=== PATIENT | female | born 1940 | race Caucasian/White ===

== ENCOUNTER → 2018-03-02 | Outpatient (CLI) | payer MEDICARE ==
--- NOTE | 2018-03-02 15:52 | BD ---
EXAMINATION TYPE: Axial Bone Density DATE OF EXAM: 03/02/2018 COMPARISON: NONE CLINICAL HISTORY: Osteoporosis screening. Postmenopausal female. Height: 62 IN Weight: 131 LBS FRAX RISK QUESTIONS: Current Tobacco Use: YES RISK FACTORS HISTORY OF: Active: MODERATE Postmenopausal woman: AGE 48 POOR HISTORIAN. MEDICATIONS: Additional Medications: CALCIUM, VIT D, EXAM MEASUREMENTS: Bone mineral densitometry was performed using the [employer] System. Bone mineral density as measured about the Lumbar spine is: ----- L1-L4(G/cm2): 0.802 T Score Values are as follows: ----- L2: -5.0 ----- L3: -3.3 ----- L4: -0.9 ----- L1-L4: -3.2 Bone mineral density BASELINE Bone mineral density about the R hip (g/cm2): 0.654 Bone mineral density about the L hip (g/cm2): 0.616 T Score values are as follows: -----R Neck: -2.8 -----L Neck: -3.0 -----R Total: -3.4 -----L Total: -3.8 Bone mineral density BASELINE IMPRESSION: Osteoporosis (T Score less than -2.5). There is increased fracture risk and therapy is usually indicated based on age. Re-Screen 1-2 years. NOTE: T-SCORE=SD OF THE YOUNG ADULT MEAN.
--- NOTE | 2018-03-03 13:45 | MM ---
Reason for exam: screening (asymptomatic). History: Patient had first child at age 38. Physical Findings: A clinical breast exam by your physician is recommended on an annual basis and results should be correlated with mammographic findings. MG Screening Mammo w CAD Bilateral CC and MLO view(s) were taken. There are scattered fibroglandular densities. Focal asymmetry 3 o'clock left breast. Central nodularity left breast anterior to middle depth. Additional grouped calcifications lower outer quadrant centrally left breast. ASSESSMENT: Incomplete: need additional imaging evaluation, BI-RAD 0 RECOMMENDATION: Special view mammogram of the left breast. If lesion persists on supplemental views, image directed ultrasound is recommended. [facility] will attempt to contact patient to return for supplemental views and ultrasound if indicated.
== END | disposition home or self-care (01) ==
LOC: RADMAMWWP 13:49
PROVIDERS: ATTEND Family Medicine
DX: Z12.31 Encounter for screening mammogram for malignant neoplasm of breast (principal); M81.0 Age-related osteoporosis without current pathological fracture; Z78.0 Asymptomatic menopausal state
CPT/HCPCS: 77067; 77080

== ENCOUNTER → 2018-03-17 | Outpatient (CLI) | payer MEDICARE ==
--- NOTE | 2018-03-18 10:43 | MM ---
Reason for exam: additional evaluation requested from abnormal screening. Last mammogram was performed less than 1 month ago. History: Patient is postmenopausal and had first child at age 38. Benign excisional biopsy. Physical Findings: Nurse did not find any significant physical abnormalities on exam. MG 3D Work Up W/Cad LT Spot compression CC, MLO, CC with magnification, ML with magnification, and ML view(s) were taken of the left breast. Prior study comparison: March 02, 2018, bilateral MG screening mammo w CAD. There are scattered fibroglandular densities. 5 'clock middle depth calcifications are heterogeneous, biopsy recommended. 4mm circumscribed mass centrally anterior to middle depth, ultrasound recommended, also at 5 o'clock. The lateral asymmetry disperses on spot 3D These results were verbally communicated with the patient and result sheet given to the patient on 03/17/18. ASSESSMENT: Incomplete: need additional imaging evaluation, BI-RAD 0 RECOMMENDATION: Ultrasound of the left breast. 5 o'clock
--- NOTE | 2018-03-18 10:47 | USB ---
Reason for exam: additional evaluation requested from abnormal screening. History: Patient is postmenopausal and had first child at age 38. Benign excisional biopsy. US Breast Workup Limited LT Left limited breast ultrasound including focal area of concern, retroareolar and axilla demonstrates a 0.2 x 0.2 x 0.2cm lesion too small to characterize at 4 o'clock, likely corresponds to the mammographic finding. Can be reassessed at follow up. These results were verbally communicated with the patient and result sheet given to the patient on 03/17/18. ASSESSMENT: Suspicious, BI-RAD 4 RECOMMENDATION: Stereotactic core biopsy of the left breast. (calcifications) Called with mammographic findings and has scheduled an appointment for the patient for 04/05/18 at 10:[address] Chavez. PRELIMINARY REPORT CALLED AND FAXED TO DR. CHAVEZ ON 03/18/18.
== END | disposition home or self-care (01) ==
LOC: RADMAMWWP 13:13
PROVIDERS: ATTEND Family Medicine
DX: R92.8 Other abnormal and inconclusive findings on diagnostic imaging of breast (principal)
CPT/HCPCS: 77065; 76642; G0279; 77061

== ENCOUNTER → 2018-03-26 | Day surgery (SDC) | payer MEDICARE ==
[2018-03-26 07:24] VITALS: RESP 16; TEMP 97.7; BMI 23.3
[2018-03-26 09:17] VITALS: BP 103/53; PULSE 69
--- NOTE | 2018-03-26 13:18 | MM ---
EXAMINATION TYPE: MG stereo VAD BX LT DATE OF EXAM: 03/26/2018 COMPARISON: 03/17/2018 CLINICAL HISTORY: 5 mm group of counts within the lower outer quadrant TECHNIQUE: Stereotactic guided core biopsy of left breast. FINDINGS: The procedure of stereotactic guided core biopsy was explained to the patient. Benefits, alternatives, and risks were discussed. An informed consent was then obtained. Preprocedural timeout was performed. The shortness pathway for biopsy was chosen. Shortness pathway was CC from below approach. Images were obtained localizing the calcifications the patient was anesthetized with lidocaine without epinephrine at the skin surface and deeper subcutaneous tissues. The needle was advanced to the appropriate depth and prefire images were obtained. After firing 10 cc of lidocaine with epinephrine was utilized to anesthetize the site of biopsy. Subsequently a vacuum assisted biopsy gun was used to obtain 9 core samples. Postprocedural biopsy marker was placed. The patient tolerated the procedure well without any immediate complication. The patient was kept in the radiology department for short stay after the procedure and then discharged home in stable condition. Targeted calcifications are identified in specimen mammogram. Post biopsy mammogram shows the biopsy marker to appear in satisfactory position relative to the targeted area of concern on the preprocedure images. IMPRESSION: SUCCESSFUL, UNCOMPLICATED STEREOTACTIC GUIDED CORE BIOPSY OF A 5 MM GROUP OF CALCIFICATIONS WITHIN THE LOWER OUTER QUADRANT OF THE LEFT BREAST , FULL PATHOLOGY RESULTS TO FOLLOW. Pathology Results: Benign LEFT BREAST LESION, NEEDLE CORE BIOPSIES: Breast parenchyma with fibrocystic spectrum changes including focal fibroadenomatoid lesion showing coarse intraductal mineralizations. Paraductal inflammation. Recommendation Follow up mammogram of the left breast in 6 months. JUANITO
== END | disposition home or self-care (01) ==
LOC: RADMAMWWP 06:53
PROVIDERS: ATTEND Family Medicine
DX: D24.2 Benign neoplasm of left breast (principal); R92.0 Mammographic microcalcification found on diagnostic imaging of breast; N61.0 Mastitis without abscess; N60.12 Diffuse cystic mastopathy of left breast
CPT/HCPCS: 88305; 19081; A4648; J2001

== ENCOUNTER → 2018-10-20 | Outpatient (CLI) | payer MEDICARE ==
--- NOTE | 2018-10-20 13:57 | MM ---
Reason for exam: follow-up at short interval from prior study. Last mammogram was performed 7 months ago. History: Patient is postmenopausal and had first child at age 38. Benign MG stereo VAD BX LT of the left breast, March 26, 2018. Benign excisional biopsy. Physical Findings: Nurse did not find any significant physical abnormalities on exam. MG 3D Diag Mammo W/Cad LT CC and MLO view(s) were taken of the left breast. Prior study comparison: March 17, 2018, left breast MG 3d work up w/cad LT. March 02, 2018, bilateral MG screening mammo w CAD. There are scattered fibroglandular densities. There is a stable lower outer quadrant left mass as seen on priors. No suspicious abnormality. Lower outer quadrant middle depth biopsy marker and post biopsy change. These results were verbally communicated with the patient and result sheet given to the patient on 10/20/18. ASSESSMENT: Benign, BI-RAD 2 RECOMMENDATION: Return to routine screening mammogram schedule for both breasts.
== END | disposition home or self-care (01) ==
LOC: RADMAMWWP 12:40
PROVIDERS: ATTEND Family Medicine
DX: N64.4 Mastodynia (principal)
CPT/HCPCS: 77065; G0279; 77061

== ENCOUNTER → 2021-06-05 | Outpatient (CLI) | payer MEDICARE ==
--- NOTE | 2021-06-05 11:44 | XR ---
EXAMINATION TYPE: XR chest 2V DATE OF EXAM: 06/05/2021 COMPARISON: None INDICATION: custodial placement, rule out TB TECHNIQUE: Frontal and lateral views of the chest are obtained. FINDINGS: The heart size is normal. The pulmonary vasculature is normal. The lungs are clear. No suspicious infiltrates or densities evident. Scoliosis is present. IMPRESSION: 1. No acute pulmonary process. 2. Scoliosis
== END | disposition home or self-care (01) ==
LOC: RADXRMAIN 10:34
PROVIDERS: ATTEND Family Medicine
DX: Z02.2 Encounter for examination for admission to residential institution (principal); M41.9 Scoliosis, unspecified
CPT/HCPCS: 71046

== ENCOUNTER → 2022-08-28 | Outpatient (CLI) | payer MEDICARE ==
--- NOTE | 2022-08-28 12:01 | CT ---
EXAMINATION TYPE: CT abdomen wo con DATE OF EXAM: 08/28/2022 COMPARISON: None HISTORY: Elevated liver enzymes CT DLP: 312 mGycm Automated exposure control for dose reduction was used. TECHNIQUE: Helical acquisition of images was performed from the lung bases through the top of iliac crest to include entire abdomen. CONTRAST: Performed without IV contrast. FINDINGS: LUNG BASES: Linear subsegmental changes most typical of atelectasis. Dense coronary artery calcificat ion noted. Heart size normal. Atherosclerotic sclerotic change of the aorta and its branch vessels. E mphysematous changes seen and suspect mild chronic interstitial lung disease. LIVER/GB: No significant abnormality is appreciated. PANCREAS: No significant abnormality is seen. SPLEEN: No significant abnormality is seen. ADRENALS: No significant abnormality is seen. KIDNEYS: No significant abnormality is seen. BOWEL: No significant abnormality is seen. LYMPH NODES: No significant abnormality is appreciated. OSSEOUS STRUCTURES: Scoliosis with multilevel degenerative disc disease. OTHER: Extensive atherosclerotic changes of aorta and its branch vessels. Suspect severe aortic steno sis distally and bilateral severe iliac artery stenosis IMPRESSION: 1. Liver is homogeneous without evidence of focal abnormality. 2. ectasia of the aorta with dense atherosclerotic changes of aorta and its branch vessels. Suspect s evere abdominal aortic stenosis distally, as well as, bilateral proximal iliac artery stenosis. 3. Dense coronary artery atherosclerotic disease.
== END | disposition home or self-care (01) ==
LOC: RADCTMAIN 11:19
PROVIDERS: ATTEND Family Medicine
DX: I70.0 Atherosclerosis of aorta (principal); I25.10 Atherosclerotic heart disease of native coronary artery without angina pectoris; R74.01 Elevation of levels of liver transaminase levels
CPT/HCPCS: 74150

== ENCOUNTER 2022-10-21 15:30 | Observation (INO) | payer MEDICARE ==
--- NOTE | 2022-10-21 16:23 | ED ---
General Adult HPI - General Source: patient, RN notes reviewed, Caregiver Mode of arrival: wheelchair Limitations: no limitations <MadisonJuanpabloHellen - Last Filed: 10/21/22 16:24> - General Source: patient, RN notes reviewed, Caregiver Mode of arrival: wheelchair Limitations: no limitations - History of Present Illness Onset/Timin -: week(s) <Cece Garcia - Last Filed: 10/22/22 00:13> - General Chief complaint: Weakness Stated complaint: Heart Time Seen by Provider: 10/21/22 16:18 - History of Present Illness Initial comments: Patient is an 82-year-old female who presents to the emergency department for evaluation of weakness. Patient has had generalized weakness and lethargy for the past 2 weeks. She denies any recent falls or head injury. She denies fever, chills, chest pain, shortness of breath, abdominal pain, nausea, vomiting, burning with urination, cold-like symptoms. Patient was at a follow- up appointment with Dr. Rosas's office today she states EKG showed arrhythmia. Patient denies history. (Hellen Wallace) When I went to evaluate the patient, she reiterated similar symptoms as listed above. However, the patient did fall 4 days ago. When she fell, she did injure her face and left hand. She has been somewhat dizzy since, however her caregiver is not sure if it has been worse than it was prior. Believes that the fall was related to her slipping out of her bed. She is usually able to ambulate with a walker, but at this point, the staff at [facility] is barely able to get her out of bed and get her to move around. They were also concerned about the echocardiogram she had done here last month, and that they believe it was inconclusive and the study was very difficult, making them concerned about the accuracy. They're also worried about the iliac stenosis on the computed tomography scan, and was worried about that contributing to the weakness as well. (Cece Garcia) - Related Data Home Medications Medication Instructions Recorded Confirmed Donepezil [Aricept] 10 mg PO HS 03/23/18 10/21/22 Escitalopram [Lexapro] 20 mg PO DAILY 03/23/18 10/21/22 Memantine [Namenda] 10 mg PO BID 03/23/18 10/21/22 lisinopriL [Zestril] 10 mg PO DAILY 03/23/18 10/21/22 Arformoterol Tartrate 15 mcg INHALATION DIRECTED 10/21/22 10/21/22 Ascorbic Acid [Vitamin C] 1,000 mg PO DAILY 10/21/22 10/21/22 Cholecalciferol [Vitamin D3 (25 25 mcg PO DAILY 10/21/22 10/21/22 Mcg = 1000 Iu)] Fluticasone/Vilanterol 1 puff INHALATION RT-DAILY 10/21/22 10/21/22 [Fluticasone-Vilanterol 200-25] Megestrol [Megace] 40 mg PO DAILY 10/21/22 10/21/22 Vitamin B Complex 1 cap PO DAILY 10/21/22 10/21/22 Yupelri 175 Mcg 175 mcg INHALATION DIRECTED 10/21/22 10/21/22 Zinc Gluconate [Zinc] 50 mg PO DAILY 10/21/22 10/21/22 Allergies Allergy/AdvReac Type Severity Reaction Status Date / Time No Known Allergies Allergy Verified 10/21/22 20:19 Review of Systems ROS Other: All systems not noted in ROS Statement are negative. <Hellen Wallace - Last Filed: 10/21/22 16:24> ROS Other: All systems not noted in ROS Statement are negative. <Cece Garcia - Last Filed: 10/22/22 00:13> ROS Statement: Those systems with pertinent positive or pertinent negative responses have been documented in the HPI. Past Medical History Past Medical History: COPD, Dementia, Hypertension Additional Past Medical History / Comment(s): back and hip pain History of Any Multi-Drug Resistant Organisms: None Reported Past Surgical History: Breast Surgery Additional Past Surgical History / Comment(s): pt states hx excisional biopsy Past Anesthesia/Blood Transfusion Reactions: No Reported Reaction Past Psychological History: Depression Smoking Status: Current some day smoker Past Alcohol Use History: Rare Past Drug Use History: None Reported <Hellen Wallace - Last Filed: 10/21/22 16:24> General Exam Limitations: no limitations <Hellen Wallace - Last Filed: 10/21/22 16:24> Limitations: no limitations General appearance: alert, in no apparent distress Head exam: Present: other (Ecchymosis to the bridge of the nose and to the right periorbital region. Nontender to palpation.) Eye exam: Present: normal appearance, PERRL, EOMI. Absent: scleral icterus, conjunctival injection, periorbital swelling Respiratory exam: Present: normal lung sounds bilaterally. Absent: respiratory distress, wheezes, rales, rhonchi, stridor Cardiovascular Exam: Present: regular rate, normal rhythm, normal heart sounds. Absent: systolic murmur, diastolic murmur, rubs, gallop, clicks Extremities exam: Present: other (Ecchymosis to the dorsal aspect of the left hand. No overlying tenderness. Full active and passive range of motion. 2+ radial pulses.) Neurological exam: Present: alert, oriented X3, CN II-XII intact Psychiatric exam: Present: normal affect, normal mood Skin exam: Present: warm, dry, intact, normal color. Absent: rash <Cece Garcia - Last Filed: 10/22/22 00:13> Course Vital Signs 10/21/22 10/21/22 10/21/22 15:48 20:51 22:54 Temperature 98.2 F Pulse Rate 97 103 H 74 Respiratory 18 18 18 Rate Blood Pressure 99/66 125/69 112/76 O2 Sat by Pulse 96 96 95 Oximetry 10/21/22 23:33 Temperature Pulse Rate 78 Respiratory 18 Rate Blood Pressure 128/67 O2 Sat by Pulse 93 L Oximetry Medical Decision Making - Lab Data Result diagrams: 10/21/22 16:42 10/21/22 16:42 - Radiology Data Radiology results: report reviewed, image reviewed <Cece Garcia - Last Filed: 10/22/22 00:13> - Medical Decision Making This is an 82-year-old female who presents to the emergency department for generalized weakness. Was pt. sent in by a medical professional or institution? @ -No Did you speak to anyone other than the patient for history? @ -Caregivers Did you review nursing and triage notes? @ -Yes, and I agree, it is accurate with regards to the patient's symptoms. Were old charts reviewed? @ -No Differential Diagnosis? @ -Differential Weakness: Hypoglycemia, shock, sepsis, hyponatremia, anemia, infection, PR, ETOH, adverse medicine reaction, overdose, stroke, this is not meant to be an all-inclusive list. EKG interpreted by me (3pts min.)? @ -Sinus rhythm. Ventricular rate 90 beats per minute, TX interval 166 ms, QRS duration 80 ms, QTC 377 ms. X-rays interpreted by me (1pt min.)? @ -Chest x-ray obtained, my interpretation identifies no localized consolidations or infiltrates. X-ray of the left hand obtained. My interpretation identifies no fractures or dislocations. CT interpreted by me (1pt min.)? @ -Computed tomography scan of the brain and c-spine obtained. My interpretation identifies no evidence of an acute intracranial hemorrhage, skull fracture, or cervical spine fracture. Computed tomography scan of the facial bones obtained as well. My interpretation identifies no evidence of any facial fractures. What testing was considered but not performed? (CT, X-rays, U/S, labs)? Why? @ -None What meds were considered but not given? Why? @ -None Did you discuss the management of the patient with other professionals? @ -Yes, Dr. Rosas, who accepts the patient for admission. Did you reconcile home meds? @ -Yes Was smoking cessation discussed for >3mins.? @ -No Was critical care preformed (if so, how long)? @ -No Were there social determinants of health that impacted care today? How? (Homelessness, low income, unemployed, alcoholism, drug addiction, transportation, low edu. Level, literacy, decrease access to med. care, snf, rehab)? @ -No Was there de-escalation of care discussed even if they declined? (Discuss DNR or withdrawal of care, Hospice)? @ -No What co-morbidities impacted this encounter? (DM, HTN, Smoking, COPD, CAD, Cancer, CVA, Hep., AIDS, mental health diagnosis, sleep apnea, morbid obesity)? @ -COPD, dementia, HTN Was patient admitted / discharged? @ -Admitted. Lab work obtained revealing minor elevation in LFTs and otherwise found to be nonactionable. Patient negative for Covid, influenza, and RSV. Given that the patient did have a recent fall, computed tomography scan of the brain, C-spine, and facial bones obtained, revealing no acute findings. Chest x-ray and x-ray of the left hand obtained as well, also revealing no acute irregularities. Urinalysis positive for a UTI. Patient given 1g of ceftriaxone with blood and urine cultures obtained prior. LFTs are elevated for unclear reasons. Most recent value for comparison is from June 2021, when they were within normal limits. Patient admitted to medicine for the UTI and increased weakness. Undiagnosed new problem with uncertain prognosis? @ -None Drug Therapy requiring intensive monitoring for toxicity (Heparin, Nitro, Insulin, Cardizem)? @ -None Were any procedures done? @ -None Diagnosis/symptom? @ -UTI, weakness Acute, or Chronic, or Acute on Chronic? @ -Acute Uncomplicated (without systemic symptoms) or Complicated (systemic symptoms)? @ -Complicated Side effects of treatment? @ -None Exacerbation, Progression, or Severe Exacerbation] @ -Not applicable Poses a threat to life or bodily function? @ -Yes This case was discussed in detail with the attending ED physician, Dr. Hannah. Presentation, findings, and treatment plan discussed in detail as well. (Cece Garcia) - Lab Data Lab Results 10/21/22 10/21/22 10/21/22 Range/Units 16:42 16:42 16:42 WBC 10.0 (3.8-10.6) k/uL RBC 3.98 (3.80-5.40) m/uL Hgb 13.7 (11.4-16.0) gm/dL Hct 41.3 (34.0-46.0) % MCV 103.7 H (80.0-100.0) fL MCH 34.4 (25.0-35.0) pg MCHC 33.2 (31.0-37.0) g/dL RDW 12.5 (11.5-15.5) % Plt Count 194 (150-450) k/uL MPV 7.9 Neutrophils % 72 % Lymphocytes % 18 % Monocytes % 6 % Eosinophils % 1 % Basophils % 1 % Neutrophils # 7.1 (1.3-7.7) k/uL Lymphocytes # 1.8 (1.0-4.8) k/uL Monocytes # 0.6 (0-1.0) k/uL Eosinophils # 0.1 (0-0.7) k/uL Basophils # 0.1 (0-0.2) k/uL Macrocytosis Slight PT 10.7 (9.0-12.0) sec INR 1.0 (<1.2) APTT 21.3 L (22.0-30.0) sec Sodium 139 (137-145) mmol/L Potassium 4.4 (3.5-5.1) mmol/L Chloride 106 (98-107) mmol/L Carbon Dioxide 25 (22-30) mmol/L Anion Gap 8 mmol/L BUN 20 H (7-17) mg/dL Creatinine 0.66 (0.52-1.04) mg/dL Est GFR (CKD-EPI)AfAm >90 (>60 ml/min/1.73 sqM) Est GFR (CKD-EPI)NonAf 81 (>60 ml/min/1.73 sqM) Glucose 88 (74-99) mg/dL Plasma Lactic Acid Alejandro (0.7-2.0) mmol/L Calcium 9.5 (8.4-10.2) mg/dL Magnesium 2.1 (1.6-2.3) mg/dL Total Bilirubin 0.6 (0.2-1.3) mg/dL AST 96 H (14-36) U/L ALT 147 H (4-34) U/L Alkaline Phosphatase 118 (38-126) U/L Troponin I (0.000-0.034) ng/mL NT-Pro-B Natriuret Pep pg/mL Total Protein 6.9 (6.3-8.2) g/dL Albumin 3.9 (3.5-5.0) g/dL TSH (0.465-4.680) mIU/L Urine Color Urine Appearance (Clear) Urine pH (5.0-8.0) Ur Specific Roebling (1.001-1.035) Urine Protein (Negative) Urine Glucose (UA) (Negative) Urine Ketones (Negative) Urine Blood (Negative) Urine Nitrite (Negative) Urine Bilirubin (Negative) Urine Urobilinogen (<2.0) mg/dL Ur Leukocyte Esterase (Negative) Urine RBC (0-5) /hpf Urine WBC (0-5) /hpf Ur Squamous Epith Cells (0-4) /hpf Urine Bacteria (None) /hpf Urine Mucus (None) /hpf Influenza Type A (PCR) (Not Detectd) Influenza Type B (PCR) (Not Detectd) RSV (PCR) (Not Detectd) SARS-CoV-2 (PCR) (Not Detectd) 10/21/22 10/21/22 10/21/22 Range/Units 16:42 16:42 16:42 WBC (3.8-10.6) k/uL RBC (3.80-5.40) m/uL Hgb (11.4-16.0) gm/dL Hct (34.0-46.0) % MCV (80.0-100.0) fL MCH (25.0-35.0) pg MCHC (31.0-37.0) g/dL RDW (11.5-15.5) % Plt Count (150-450) k/uL MPV Neutrophils % % Lymphocytes % % Monocytes % % Eosinophils % % Basophils % % Neutrophils # (1.3-7.7) k/uL Lymphocytes # (1.0-4.8) k/uL Monocytes # (0-1.0) k/uL Eosinophils # (0-0.7) k/uL Basophils # (0-0.2) k/uL Macrocytosis PT (9.0-12.0) sec INR (<1.2) APTT (22.0-30.0) sec Sodium (137-145) mmol/L Potassium (3.5-5.1) mmol/L Chloride (98-107) mmol/L Carbon Dioxide (22-30) mmol/L Anion Gap mmol/L BUN (7-17) mg/dL Creatinine (0.52-1.04) mg/dL Est GFR (CKD-EPI)AfAm (>60 ml/min/1.73 sqM) Est GFR (CKD-EPI)NonAf (>60 ml/min/1.73 sqM) Glucose (74-99) mg/dL Plasma Lactic Acid Alejandro 2.0 (0.7-2.0) mmol/L Calcium (8.4-10.2) mg/dL Magnesium (1.6-2.3) mg/dL Total Bilirubin (0.2-1.3) mg/dL AST (14-36) U/L ALT (4-34) U/L Alkaline Phosphatase (38-126) U/L Troponin I <0.012 (0.000-0.034) ng/mL NT-Pro-B Natriuret Pep 182 pg/mL Total Protein (6.3-8.2) g/dL Albumin (3.5-5.0) g/dL TSH (0.465-4.680) mIU/L Urine Color Urine Appearance (Clear) Urine pH (5.0-8.0) Ur Specific Roebling (1.001-1.035) Urine Protein (Negative) Urine Glucose (UA) (Negative) Urine Ketones (Negative) Urine Blood (Negative) Urine Nitrite (Negative) Urine Bilirubin (Negative) Urine Urobilinogen (<2.0) mg/dL Ur Leukocyte Esterase (Negative) Urine RBC (0-5) /hpf Urine WBC (0-5) /hpf Ur Squamous Epith Cells (0-4) /hpf Urine Bacteria (None) /hpf Urine Mucus (None) /hpf Influenza Type A (PCR) (Not Detectd) Influenza Type B (PCR) (Not Detectd) RSV (PCR) (Not Detectd) SARS-CoV-2 (PCR) (Not Detectd) 10/21/22 10/21/22 10/21/22 Range/Units 18:42 19:15 21:45 WBC (3.8-10.6) k/uL RBC (3.80-5.40) m/uL Hgb (11.4-16.0) gm/dL Hct (34.0-46.0) % MCV (80.0-100.0) fL MCH (25.0-35.0) pg MCHC (31.0-37.0) g/dL RDW (11.5-15.5) % Plt Count (150-450) k/uL MPV Neutrophils % % Lymphocytes % % Monocytes % % Eosinophils % % Basophils % % Neutrophils # (1.3-7.7) k/uL Lymphocytes # (1.0-4.8) k/uL Monocytes # (0-1.0) k/uL Eosinophils # (0-0.7) k/uL Basophils # (0-0.2) k/uL Macrocytosis PT (9.0-12.0) sec INR (<1.2) APTT (22.0-30.0) sec Sodium (137-145) mmol/L Potassium (3.5-5.1) mmol/L Chloride (98-107) mmol/L Carbon Dioxide (22-30) mmol/L Anion Gap mmol/L BUN (7-17) mg/dL Creatinine (0.52-1.04) mg/dL Est GFR (CKD-EPI)AfAm (>60 ml/min/1.73 sqM) Est GFR (CKD-EPI)NonAf (>60 ml/min/1.73 sqM) Glucose (74-99) mg/dL Plasma Lactic Acid Alejandro (0.7-2.0) mmol/L Calcium (8.4-10.2) mg/dL Magnesium (1.6-2.3) mg/dL Total Bilirubin (0.2-1.3) mg/dL AST (14-36) U/L ALT (4-34) U/L Alkaline Phosphatase (38-126) U/L Troponin I (0.000-0.034) ng/mL NT-Pro-B Natriuret Pep pg/mL Total Protein (6.3-8.2) g/dL Albumin (3.5-5.0) g/dL TSH 1.760 (0.465-4.680) mIU/L Urine Color Yellow Urine Appearance Cloudy H (Clear) Urine pH 5.5 (5.0-8.0) Ur Specific Roebling 1.020 (1.001-1.035) Urine Protein Trace H (Negative) Urine Glucose (UA) Negative (Negative) Urine Ketones Negative (Negative) Urine Blood Negative (Negative) Urine Nitrite Positive H (Negative) Urine Bilirubin Negative (Negative) Urine Urobilinogen 2.0 (<2.0) mg/dL Ur Leukocyte Esterase Moderate H (Negative) Urine RBC 2 (0-5) /hpf Urine WBC 27 H (0-5) /hpf Ur Squamous Epith Cells <1 (0-4) /hpf Urine Bacteria Many H (None) /hpf Urine Mucus Occasional H (None) /hpf Influenza Type A (PCR) Not Detected (Not Detectd) Influenza Type B (PCR) Not Detected (Not Detectd) RSV (PCR) Not Detected (Not Detectd) SARS-CoV-2 (PCR) Not Detected (Not Detectd) Disposition <Hellen Wallace - Last Filed: 10/21/22 16:24> <Cece Garcia - Last Filed: 10/22/22 00:13> Clinical Impression: UTI (urinary tract infection), Weakness Disposition: ADMITTED IP TO THIS HOSP
--- NOTE | 2022-10-21 16:51 | XR ---
EXAMINATION TYPE: XR chest 2V DATE OF EXAM: 10/21/2022 COMPARISON: 06/05/2021 HISTORY: [facility] placement TECHNIQUE: 2 view FINDINGS: There is moderate upper thoracic dextroscoliotic deformity. Lungs are clear of consolidatio n. There is some flattening of the diaphragm. There are no hilar masses. Heart size is normal. IMPRESSION: COPD. No acute lung disease. Scoliotic deformity. No significant change.
[2022-10-21 17:17] LABS: Basophils # (A) 0.1 k/uL (0-0.2); Basophils % (A) 1 %; Eosinophils # (A) 0.1 k/uL (0-0.7); Eosinophils % (A) 1 %; HCT 41.3 % (34.0-46.0); HGB 13.7 gm/dL (11.4-16.0); Lymphocytes # (A) 1.8 k/uL (1.0-4.8); Lymphocytes % (A) 18 %; MCH 34.4 pg (25.0-35.0); MCHC 33.2 g/dL (31.0-37.0); MCV 103.7 fL (80.0-100.0); Macrocytosis Slight; Mean Platelet Volume 7.9; Monocytes # (A) 0.6 k/uL (0-1.0); Monocytes % (A) 6 %; Neutrophils # (A) 7.1 k/uL (1.3-7.7); Neutrophils % (A) 72 %; Platelet Count 194 k/uL (150-450); RBC 3.98 m/uL (3.80-5.40); RDW 12.5 % (11.5-15.5)
[2022-10-21 17:27] LABS: ALT 147 U/L (4-34); AST 96 U/L (14-36); African American GFR (CKD) >90 (>60 ml/min/1.73 sqM); Albumin 3.9 g/dL (3.5-5.0); Alkaline Phosphatase 118 U/L (38-126); Anion Gap 8 mmol/L; Blood Urea Nitrogen 20 mg/dL (7-17); Calcium 9.5 mg/dL (8.4-10.2); Carbon Dioxide 25 mmol/L (22-30); Chloride 106 mmol/L (98-107); Glucose 88 mg/dL (74-99); Magnesium 2.1 mg/dL (1.6-2.3); Non-African American GFR(CKD) 81 (>60 ml/min/1.73 sqM); Potassium 4.4 mmol/L (3.5-5.1); Sodium 139 mmol/L (137-145); Total Bilirubin 0.6 mg/dL (0.2-1.3); Total Protein 6.9 g/dL (6.3-8.2)
[2022-10-21 17:33] LABS: Prothrombin Time 10.7 sec (9.0-12.0)
[2022-10-21 17:36] LABS: Partial Thromboplastin Time 21.3 sec (22.0-30.0)
--- NOTE | 2022-10-21 19:55 | XR ---
EXAMINATION TYPE: XR hand complete LT DATE OF EXAM: 10/21/2022 COMPARISON: NONE HISTORY: Pain TECHNIQUE: 3 views FINDINGS: Metacarpals are intact. I see no fracture nor dislocation. There is some narrowing of the D IP joint spaces. There are no erosions. No subluxation. There is narrowing and spurring at the scaphoid trapezium joint. IMPRESSION: There is nonspecific joint space narrowing. No fracture seen.
--- NOTE | 2022-10-21 20:01 | CT ---
EXAMINATION TYPE: CT facial bones wo con DATE OF EXAM: 10/21/2022 COMPARISON: None HISTORY: fall, facial swelling CT DLP: 994.1 mGycm Automated exposure control for dose reduction was used. Images obtained from the bottom of the mandible to the top of the frontal sinuses. The mandibular ring is intact. The zygomatic arches appear normal. Maxilla is intact. Nasal bone is i ntact. There is fairly normal aeration of the paranasal sinuses. The orbital margins are intact. No evidence of retro-orbital mass. Sella turcica is normal. No eviden ce of orbital blowout fracture. There is fairly normal aeration of the mastoid air cells. IMPRESSION: No evidence of traumatic injury of the facial bones.
--- NOTE | 2022-10-21 20:03 | CT ---
EXAMINATION TYPE: CT brain fernando nayak con DATE OF EXAM: 10/21/2022 COMPARISON: None HISTORY: fall, AMS CT DLP: 994.1 mGycm Automated exposure control for dose reduction was used. Images of the brain and cervical spine obtained with no contrast. There is diffuse moderate cerebral cortical atrophy. There is patchy hypodensity in the periventricul ar white matter. There is no mass effect or midline shift. No sign of intracranial hemorrhage. Calvar ium is intact. Skull base is intact. There is normal aeration of the mastoid air cells. Occipital bon e is intact. The cervical vertebra have normal alignment. There is degenerative disc space narrowing at C5-6 and C 6-7 with spurring of the endplates. No compression fracture. There is mild multilevel cervical facet arthropathy. IMPRESSION: Spondylotic changes in the lower cervical spine. No fracture. Cerebral atrophy and chronic small vess el ischemia. No hemorrhage.
[2022-10-21 22:08] LABS: Appearance,Urine Cloudy (Clear); Bacteria,Urine Many /hpf; Bilirubin,Urine Negative (Negative); Blood,Urine Negative (Negative); Color,Urine Yellow; Glucose,Urine (UA) Negative (Negative); Ketones,Urine Negative (Negative); Leukocyte Esterase,Urine Moderate (Negative); Mucus,Urine Occasional /hpf; Nitrite,Urine Positive (Negative); PH, Urine 5.5 (5.0-8.0); Protein,Urine Trace (Negative); RBC,Urine 2 /hpf (0-5); Squamous Epithelial Cell,Urine <1 /hpf (0-4); WBC,Urine 27 /hpf (0-5)
[2022-10-21] MEDS ORDERED: cefTRIAXone IN SWFI 1,000 MG/10 ML SYRINGE IVP STA (22:12)
[2022-10-21] MEDS ORDERED: ONDANSETRON 4 MG/2 ML VIAL IVP PRN (22:34)
[2022-10-21] MEDS ORDERED: HYDROcodone/APAP 5-325MG 1 EACH TAB PO PRN (22:34)
[2022-10-21] MEDS ORDERED: IBUPROFEN 400 MG TAB PO PRN (22:34)
[2022-10-21] MEDS ORDERED: ACETAMINOPHEN TAB 325 MG TAB PO PRN (22:34)
[2022-10-21] MEDS ORDERED: NALOXONE 0.4 MG/ML 1 ML VIAL IV PRN (22:34)
[2022-10-21] MEDS: MEMANTINE 10 MG TAB PO SCH (23:01)
[2022-10-21] MEDS: DONEPEZIL 10 MG TAB PO SCH (23:01)
[2022-10-21] MEDS: YUPELRI INHALATION SCH (23:15)
[2022-10-22] MEDS: FORMOTEROL FUMARATE 20 MCG/2 ML NEBU INHALATION SCH ×3 (00:45→20:48)
[2022-10-22] MEDS: SYMBICORT 160-4.5 MCG INHALER INHALATION SCH ×2 (08:03→20:48)
[2022-10-22] MEDS: ESCITALOPRAM 20 MG TAB PO SCH (10:07)
[2022-10-22] MEDS: ZINC SULFATE 220 MG CAP PO SCH (10:07)
[2022-10-22] MEDS: CHOLECALCIFEROL 25 MCG (1000 IU) TABLET PO SCH (10:07)
[2022-10-22] MEDS: lisinopriL 10 MG TAB PO SCH (10:07)
[2022-10-22] MEDS: MEMANTINE 10 MG TAB PO SCH ×2 (10:08→20:02)
[2022-10-22] MEDS: FOLIC ACID-VIT B COMPLEX-VIT C 1 CAP PO SCH (10:08)
[2022-10-22] MEDS: ASCORBIC ACID 500 MG TAB PO SCH (10:08)
[2022-10-22] MEDS: MEGESTROL 40 MG TAB PO SCH (10:08)
[2022-10-22] MEDS: ALBUTEROL NEBULIZED 2.5 MG/3 ML INHALATION SCH ×2 (15:25→20:48)
[2022-10-22] MEDS: IPRATROPIUM 0.5 MG/2.5 ML NEBU INHALATION SCH ×2 (15:25→20:49)
--- NOTE | 2022-10-22 15:29 | P.CNNES ---
History of Present Illness Consult date: 10/22/22 Requesting physician: Pineda Rosas Reason for Consult: imabalance/gait dysfunction History of Present Illness: This is a 82-year-old woman with dementia who presented to the hospital because of generalized weakness and falls. History is obtained from the daughter. According to the daughter patient has advanced dementia that is chronic but in past two weeks has generalized weakness and has been sliding off her bed and result falls. The daughter get assistance for her ADL's and need's help with basic things. Her bed is high rise bed and daughter states roll and result falls. Daughter denies any focal weakness. Denies any seizure-like activity. Patient baseline is oriented to self only (most of time she known herself). She use to walk with walker prior to this. For her dementia she is on Aricept and Namenda Workup during his hospital visit consisted of: AST of 96 ALT of 147 otherwise rest of cancer panel is unremarkable TSH was 1.760. Urinalysis is positive for nitrates, leukocyte esterase moderate urine white blood cells 27 her urinalysis seems possible suggestive of urinary tract infection Influenza A/P, RSV, SARS-CoV2 PCR is not detected. CT of the face is reported as no evidence of traumatic injury of the facial bone. CT of the head is reported as cerebral atrophy and chronic small vessel ischemia. No hemorrhage. I personally reviewed the CT of the head and the patient has diffuse atrophy. Patient has old lacunar stroke or bilateral basal ganglia. There is no hemorrhage. CT of cervical spine was reported as spondylitic changes in the lower cervical spine. Review of Systems Review of system is very limited but apparent positive and negative as per HPI Past Medical History Past Medical History: COPD, Dementia, Hypertension Additional Past Medical History / Comment(s): back and hip pain History of Any Multi-Drug Resistant Organisms: None Reported Past Surgical History: Breast Surgery Additional Past Surgical History / Comment(s): pt states hx excisional biopsy Past Anesthesia/Blood Transfusion Reactions: No Reported Reaction Past Psychological History: Depression Smoking Status: Current some day smoker Past Alcohol Use History: Rare Past Drug Use History: None Reported Medications and Allergies Home Medications Medication Instructions Recorded Confirmed Type Donepezil [Aricept] 10 mg PO HS 03/23/18 10/21/22 History Escitalopram [Lexapro] 20 mg PO DAILY 03/23/18 10/21/22 History Memantine [Namenda] 10 mg PO BID 03/23/18 10/21/22 History lisinopriL [Zestril] 10 mg PO DAILY 03/23/18 10/21/22 History Arformoterol Tartrate 15 mcg INHALATION RT-BID 10/21/22 10/22/22 History Ascorbic Acid [Vitamin C] 1,000 mg PO DAILY 10/21/22 10/21/22 History Cholecalciferol [Vitamin D3 (25 25 mcg PO DAILY 10/21/22 10/21/22 History Mcg = 1000 Iu)] Fluticasone/Vilanterol 1 puff INHALATION RT-DAILY 10/21/22 10/21/22 History [Fluticasone-Vilanterol 200-25] Megestrol [Megace] 40 mg PO DAILY 10/21/22 10/21/22 History Vitamin B Complex 1 cap PO DAILY 10/21/22 10/21/22 History Yupelri 175 Mcg 175 mcg INHALATION RT-DAILY 10/21/22 10/22/22 History Zinc Gluconate [Zinc] 50 mg PO DAILY 10/21/22 10/21/22 History Allergies Allergy/AdvReac Type Severity Reaction Status Date / Time No Known Allergies Allergy Verified 10/21/22 20:19 Physical Examination - Vital Signs Vital Signs: Vital Signs Temp Pulse Pulse Resp BP BP BP 10/22/22 13:42 98.6 F 79 16 95/92 10/22/22 10:18 97.7 F 83 15 118/79 10/22/22 08:03 10/22/22 07:45 16 10/22/22 07:10 98.2 F 70 16 121/62 10/22/22 01:14 16 10/22/22 01:13 98 F 83 16 116/72 10/22/22 00:50 76 10/22/22 00:45 72 10/21/22 23:33 78 18 128/67 10/21/22 22:54 74 18 112/76 10/21/22 20:51 103 H 18 125/69 10/21/22 15:48 98.2 F 97 18 99/66 Pulse Ox 10/22/22 13:42 97 10/22/22 10:18 95 10/22/22 08:03 97 10/22/22 07:45 10/22/22 07:10 97 10/22/22 01:14 10/22/22 01:13 94 L 10/22/22 00:50 10/22/22 00:45 10/21/22 23:33 93 L 10/21/22 22:54 95 10/21/22 20:51 96 10/21/22 15:48 96 Intake and Output 10/21/22 10/22/22 10/22/22 22:59 06:59 14:59 Output Total 100 Balance -100 Output: Urine 100 Other: Voiding Method Diaper Diaper Incontinent Incontinent External Catheter External Catheter # Voids 0 Weight 51.256 kg 51.256 kg GENERAL: The patient is lying in bed and is not in acute distress. HENT: Has echymosis around the right upper eye. CHEST: The heart rate is regular rate rhythm. No murmurs to auscultation. LUNG: Clear to auscultation bilaterally no wheezing noted throughout. Not labored breathing. ABDOMEN/GI: Bowel sounds present in all 4 quadrants. No tenderness to palpation throughout. NEUROLOGICAL: Higher mental function: The patient is awake, alert, oriented to self only. Could not tell me place or time. Patient is able to name objects (pen and watch). Is following simple commands. Language is limited. No neglect. Cranial nerves: The pupils are round, equal and reactive to light. Visual duarte are full to confrontation throughout. Extraocular movement is intact no nystagmus is noted. Facial sensation is normal to touch throughout. The facial strength is normal throughout. Tongue is midline and moved [id number] without any difficulty. No dysarthria is noted. Shoulder shrug is normal bilaterally. Motor: The strength is hard to assess individual muscles because of cooperation but lifting all above gravity without focality. Normal tone and bulk. Cerebellum: Normal finger to nose bilaterally. Sensation: Sensation is normal to touch throughout. Reflexes (right/left):1+ throughout. Plantars are mute bilaterally. Results - Laboratory Findings CBC and BMP: 10/21/22 16:42 10/21/22 16:42 Abnormal Lab Findings: Abnormal Labs 10/21/22 10/21/22 10/21/22 16:42 16:42 16:42 MCV 103.7 H APTT 21.3 L BUN 20 H AST 96 H ALT 147 H Urine Appearance Urine Protein Urine Nitrite Ur Leukocyte Esterase Urine WBC Urine Bacteria Urine Mucus 10/21/22 21:45 MCV APTT BUN AST ALT Urine Appearance Cloudy H Urine Protein Trace H Urine Nitrite Positive H Ur Leukocyte Esterase Moderate H Urine WBC 27 H Urine Bacteria Many H Urine Mucus Occasional H Assessment and Plan Assessment: Generalized weakness for 2 weeks with falls likely due to underlying urinary tract infection. 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 History of COPD Plan: I ordered CK level ammonia level. Ordered orthostatic vitals once patient is stable to cooperate for it. I agree with the the order vitamin B12, folate PT, OT are consulted Recommend [id number] daily for secondary stroke prophylaxis but will would recommend if no further falls since has recurrent falls but once normalized to start. Recommend Lipitor 10mg qhs for secondary stroke prophylaxis if not issues with liver and her transaminitis has resolved. We'll defer the rest of the medical management to the primary team I notified the daughter to get a rail on the bed to avoid the patient falling. We'll defer the rest of the medical management to primary team. The plan was discussed with the patient's daughter via phone and her nurse Thank you for consultation Time with Patient: Greater than 30
[2022-10-22] MEDS ORDERED: IPRATROPIUM-ALBUTEROL 3 ML NEB INHALATION SCH (16:00)
[2022-10-22 18:01] LABS: Creatine Kinase 47 U/L (30-135)
[2022-10-22] MEDS: YUPELRI INHALATION SCH (20:02)
[2022-10-22] MEDS: DONEPEZIL 10 MG TAB PO SCH (20:02)
--- NOTE | 2022-10-22 21:23 | HP ---
HISTORY AND PHYSICAL HISTORY OF PRESENT ILLNESS: White female came to the emergency room due to increasing falls at home and altered mental status, more confused and wobbling when she is walking [id number] with her walker. She has history of dementia, severe COPD, and nocturnal hypoxemia. Family says standard baseline. She is very confused. She was found to have a possible urinary tract infection versus pyelonephritis, at which time, we admitted her for IV antibiotics, and she had a CAT scan of the head, which is negative for intracranial bleed. We will get Neurology involved. I suspect she has metabolic encephalopathy secondary to urinary tract infection. She has COPD, nicotine addiction, and severe dementia. We will get Neurology's recommendations on her confusion and her difficulty with ambulation recently. It started in the past 1 to 2 weeks. Before that, she was okay. She has slipped out of her bed. Her caregiver stays at home. They are barely able to get her up and move her around. 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 She has dementia, weakness, and fatigue at this time. HOME MEDICINES: 1. Aricept 10 mg daily. 2. Lexapro 20 mg daily. 3. Namenda 10 mg b.i.d. 4. Zestril 10 mg daily. 5. Fluticasone/vilanterol 200/25 one puff daily. 6. Megace 40 daily. 7. B complex daily. 8. Ascorbic acid 1000 mg daily. 9. Yupelri 175 mcg inhaler daily. 10.Zinc 50 daily. ALLERGIES: See above. PAST MEDICAL HISTORY: As mentioned, dementia, COPD, and hypertension. SOCIAL HISTORY: Current everyday smoker. PHYSICAL EXAMINATION: GENERAL: She is answering questions, but she looks groggy. HEENT: She has some darkness and bruising around her periorbital regions, where she may have fallen, which is nontender. Pupils are equal, round, and reactive. LUNGS: Decreased breath sounds x4. CARDIOVASCULAR: S1 and S2. Tachycardic in the low 100s. EXTREMITIES: Show some ecchymosis in the dorsal aspect of the left hand. Otherwise, nontender. Full range of motion. NEUROLOGIC: She is alert and oriented. She is pleasantly confused. PSYCHIATRIC: Fair mood and affect. SKIN: As mentioned, bruising around the right orbit area. ASSESSMENT AND PLAN: Falls. Metabolic encephalopathy secondary to urinary tract infection. Recent increasing confusion and metabolic encephalopathy, hopefully from urinary tract infection. We will get Neurology involved to rule out other origins at this time. We will check vitamin levels. CAT scan of the brain is negative for bleed. Continue home medicines. Prognosis is guarded. IV antibiotics. MMODL / IJN: [id number] /
--- NOTE | 2022-10-22 23:20 | CT ---
EXAMINATION TYPE: CT angio chest DATE OF EXAM: 10/22/2022 COMPARISON: None HISTORY: elevated d dimer CT DLP: 244.1 mGycm Automated exposure control for dose reduction was used. CONTRAST: Performed with IV Contrast, patient injected with 100ml mL of Isovue 370. There are Three-D postprocessed images. There is some diffuse pulmonary emphysema. No mediastinal adenopathy. There is thoracic dextroscolios is. There is tortuosity of the thoracic aorta. No dissection. There are no hilar masses. There is normal contrast opacification of the pulmonary arteries. No filling defect. There is thoraco lumbar levoscoliosis and moderate mid thoracic dextroscoliotic deformity. No thoracic compression fra cture. No evidence of focal bone destruction. The upper abdominal soft tissues are intact. The ascend ing aorta measures 3.5 cm. IMPRESSION: No evidence of pulmonary embolism. There is some diffuse pulmonary emphysema. There is progression of emphysema compared to 07/28/2017 CT scan. No suspicious pulmonary mass. Mild scarring and subsegmental atelectasis at the lung bases.
[2022-10-23] MEDS ORDERED: cefTRIAXone 1,000 MG VIAL (IM USE) IM SCH (09:00)
[2022-10-23] MEDS: MEMANTINE 10 MG TAB PO SCH ×2 (09:17→20:14)
[2022-10-23] MEDS: ASCORBIC ACID 500 MG TAB PO SCH (09:17)
[2022-10-23] MEDS: CHOLECALCIFEROL 25 MCG (1000 IU) TABLET PO SCH (09:17)
[2022-10-23] MEDS: FOLIC ACID-VIT B COMPLEX-VIT C 1 CAP PO SCH (09:17)
[2022-10-23] MEDS: ESCITALOPRAM 20 MG TAB PO SCH (09:17)
[2022-10-23] MEDS: lisinopriL 10 MG TAB PO SCH (09:17)
[2022-10-23] MEDS: ZINC SULFATE 220 MG CAP PO SCH (09:17)
[2022-10-23] MEDS: MEGESTROL 40 MG TAB PO SCH (09:18)
[2022-10-23] MEDS: SYMBICORT 160-4.5 MCG INHALER INHALATION SCH ×2 (09:21→20:16)
[2022-10-23] MEDS: FORMOTEROL FUMARATE 20 MCG/2 ML NEBU INHALATION SCH (09:21)
[2022-10-23] MEDS: IPRATROPIUM 0.5 MG/2.5 ML NEBU INHALATION SCH ×4 (09:21→20:27)
[2022-10-23] MEDS: ALBUTEROL NEBULIZED 2.5 MG/3 ML INHALATION SCH ×4 (09:21→20:16)
--- NOTE | 2022-10-23 13:34 | P.PN ---
Subjective Progress Note Date: 10/23/22 The patient is seen at bedside and is accompanied by her sister and caregiver and feel doing about the same. Patient feels she is doing well. Objective - Vital Signs Vital signs: Vital Signs Temp 98.2 F 10/23/22 07:00 Pulse 89 10/23/22 07:00 Resp 16 10/23/22 07:00 BP 119/79 10/23/22 07:00 Pulse Ox 97 10/23/22 07:00 FiO2 Intake & Output 10/22/22 10/23/22 10/23/22 18:59 06:59 18:59 Output Total 800 200 144 Balance -800 -200 -144 Output: Urine 800 200 Straight 100 Post Void Residual 144 Other: Voiding Method Diaper Diaper Diaper Incontinent Incontinent Incontinent External Catheter External Catheter External Catheter # Voids 1 - Exam GENERAL: The patient is lying in bed and is not in acute distress. NEUROLOGICAL: Higher mental function: The patient is awake, alert, oriented to self only. Could not tell me place or time. Patient is able to name objects (pen and watch). Is following simple commands. Language is limited. No neglect. Cranial nerves: The pupils are round, equal and reactive to light. Visual duarte are full to confrontation throughout. Extraocular movement is intact no nystagmus is noted. Facial sensation is normal to touch throughout. The facial strength is normal throughout. Tongue is midline and moved [id number] without any difficulty. No dysarthria is noted. Shoulder shrug is normal bilaterally. Motor: The strength is hard to assess individual muscles because of cooperation but lifting all above gravity without focality. Normal tone and bulk. Cerebellum: Normal finger to nose bilaterally. Sensation: Sensation is normal to touch throughout. Reflexes (right/left):1+ throughout. Plantars are mute bilaterally. Some of the Workup during his hospital visit consisted of: AST of 96 ALT of 147 otherwise rest of cancer panel is unremarkable TSH was 1.760. Urinalysis is positive for nitrates, leukocyte esterase moderate urine white blood cells 27 her urinalysis seems possible suggestive of urinary tract infection Influenza A/P, RSV, SARS-CoV2 PCR is not detected. Vitamin B12: 1209 Serum folate 24.2 Ammonia <9. CK level is 47 CT of the face is reported as no evidence of traumatic injury of the facial bone. CT of the head is reported as cerebral atrophy and chronic small vessel ischemia. No hemorrhage. I personally reviewed the CT of the head and the patient has diffuse atrophy. Patient has old lacunar stroke or bilateral basal ganglia. There is no hemorrhage. CT of cervical spine was reported as spondylitic changes in the lower cervical spine. - Labs CBC & Chem 7: 10/21/22 16:42 10/21/22 16:42 Labs: Abnormal Lab Results - Last 24 Hours (Table) 10/22/22 10/22/22 Range/Units 17:22 17:22 D-Dimer 4.38 H (<0.60) mg/L FEU Vitamin B12 1209.0 H (200.0-944.0) pg/mL Microbiology - Last 24 Hours (Table) 10/21/22 21:45 Urine Culture - Preliminary Urine,Voided Gram Neg Bacilli 10/21/22 22:25 Blood Culture - Preliminary Blood No Growth after 24 hours 10/21/22 22:18 Blood Culture - Preliminary Blood No Growth after 24 hours Assessment and Plan Assessment: Generalized weakness for 2 weeks with falls likely due to underlying urinary tract infection---curently at baseline. 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 History of COPD Plan: PT, OT are consulted Recommend [id number] daily for secondary stroke prophylaxis. Recommend Lipitor 10mg qhs for secondary stroke prophylaxis if not issues with liver and her transaminitis has resolved. We'll defer the rest of the medical management to the primary team I notified the daughter to get a rail on the bed to avoid the patient falling. We'll defer the rest of the medical management to primary team. The plan was discussed with the patient's sister and her caregiver in person. Also discussed with her nurse. There is no further neurological work-up. Will sign off. Please reconsult if needed. Time with Patient: Less than 30
[2022-10-23] MEDS: DONEPEZIL 10 MG TAB PO SCH (20:14)
[2022-10-24 07:32] VITALS: RESP 16
[2022-10-24] MEDS ORDERED: ATORVASTATIN 10 MG TAB PO SCH (09:00)
[2022-10-24] MEDS ORDERED: ASPIRIN 81 MG PO SCH (09:00)
[2022-10-24] MEDS: lisinopriL 10 MG TAB PO SCH (09:18)
[2022-10-24] MEDS: MEGESTROL 40 MG TAB PO SCH (09:18)
[2022-10-24] MEDS: ZINC SULFATE 220 MG CAP PO SCH (09:19)
[2022-10-24] MEDS: ASCORBIC ACID 500 MG TAB PO SCH (09:19)
[2022-10-24] MEDS: CHOLECALCIFEROL 25 MCG (1000 IU) TABLET PO SCH (09:19)
[2022-10-24] MEDS: ESCITALOPRAM 20 MG TAB PO SCH (09:19)
[2022-10-24] MEDS: FOLIC ACID-VIT B COMPLEX-VIT C 1 CAP PO SCH (09:19)
[2022-10-24] MEDS: MEMANTINE 10 MG TAB PO SCH (09:19)
[2022-10-24] MEDS: YUPELRI INHALATION SCH (09:19)
[2022-10-24] MEDS: IPRATROPIUM 0.5 MG/2.5 ML NEBU INHALATION SCH ×3 (09:33→15:06)
[2022-10-24] MEDS: SYMBICORT 160-4.5 MCG INHALER INHALATION SCH (09:33)
[2022-10-24] MEDS: ALBUTEROL NEBULIZED 2.5 MG/3 ML INHALATION SCH ×3 (09:33→15:06)
--- NOTE | 2022-10-24 12:39 | PN ---
PROGRESS NOTE DATE OF SERVICE: 10/23/2022 SUBJECTIVE: This is an 82-year-old white female with positive D-dimer. CAT scan shows negative for pulmonary embolism but severe worsening of her emphysema. She feels better. She is alert, oriented x1, pleasantly confused. Workup per neurology was reviewed, appreciated. OBJECTIVE: CARDIOVASCULAR: S1, S2. LUNGS: Scattered rhonchi and wheeze. HEMATOLOGY: Negative Homans. She feels better than when she was admitted. Negative blood cultures x48 hours. She has gram-negative bacilli in her urine, awaiting final culture prior to discharge. She has elevated B12 levels, folate is normal, thyroid is normal. Troponins are negative. BNP is negative. ASSESSMENT: Chronic obstructive pulmonary disease exacerbation, acute hypoxemic respiratory failure, altered mental status secondary to urinary tract infection, advanced dementia. Continue current treatment. Await IV antibiotics. Wait for final culture before discharging. MMODL / IJN: [id number] /
--- NOTE | 2022-10-24 12:48 | PN ---
PROGRESS NOTE SUBJECTIVE: This 82-year-old white female, pleasantly confused. She is being treated for UTI, waiting for final culture and sensitivity prior to discharge. Seen by Neurology. Positive D-dimer, is negative for pulmonary embolism, just worsening emphysema. Possibly add Spiriva inhaler with her Symbicort when she goes home. She is supposed to wear oxygen at nighttime. OBJECTIVE: GENERAL: She is pleasantly confused. CARDIOVASCULAR: S1, S2. LUNGS: Clear. GI: Soft. ASSESSMENT: Metabolic encephalopathy secondary to urinary tract infection and dementia, mild dehydration, protein-calorie malnutrition, end-stage chronic obstructive pulmonary disease, gait imbalance secondary to above. Prognosis guarded. Continue current treatment. MMODL / IJN: [id number] /
[2022-10-24 14:43] VITALS: BP 93/63; TEMP 98.3
[2022-10-24 15:18] VITALS: PULSE 104
--- NOTE | 2022-10-24 16:45 | DS ---
DISCHARGE SUMMARY DISCHARGE MEDICATIONS: Include: 1. Aspirin 81 mg daily. 2. Lipitor 10 mg at bedtime. 3. Nephrocaps 1 daily. 4. Protonix 40 mg b.i.d. 5. Symbicort 160/4.5 two puffs b.i.d. 6. Cipro 250 mg p.o. b.i.d. for 7 days. 7. Motrin 400 mg q.6 hours. 8. Tylenol 650 q.6 hours p.r.n. 9. Aricept 10 mg daily. 10.Namenda 10 mg b.i.d. 11.Lexapro 20 mg daily. 12.Zestril 10 mg daily. 13.Zinc 50 mg daily. 14.Vitamin B complex 1 daily. 15.Vitamin D3 of 1000 international units daily. 16.Vitamin C 1000 mg daily. 17.Yupelri 175 mcg inhalation with nebulizer daily. 18.Megace 40 mg daily. CONDITION: Stable. PROGNOSIS: Guarded. HOSPITAL COURSE: The patient was admitted with UTI with metabolic encephalopathy secondary to UTI with gait imbalance and ambulating. She will need physical therapy. She became more alert and more stable when her UTI was treated with IV Rocephin, switched to oral antibiotics on discharge. She wears nocturnal oxygen at 2 L every night. She will need to continue to wear 2 L oxygen at nighttime at the detention. PT and OT will be done. Condition is stable. Prognosis is guarded. Follow up with Dr. Pineda Rosas. AAMIR / KIRK: [id number] /
[2022-10-24] MEDS ORDERED: PANTOPRAZOLE 40 MG TABLET PO SCH (17:30)
[2022-10-24] MEDS ORDERED: CIPROFLOXACIN HCL 250 MG TAB PO SCH (21:00)
--- NOTE | 2022-10-24 23:06 | P.CONS ---
History of Present Illness - Reason for Consult Consult date: 10/24/22 Urinary tract infection Requesting physician: Pineda Rosas - Chief Complaint Weakness and mental status changes x few days - History of Present Illness Patient is 82-year-old female with a past medical history significant for dementia hypertension COPD presenting to the hospital 3 days ago for evaluation of weakness lethargy symptom has been going on for about 2 weeks before presentation to the hospital patient apparently also have a fall with bruising to the right forehead with the symptom the patient was evaluated by her primary care physician apparently did have EKG with evidence of arrhythmia for the patient was sent to [facility] ER on arrival to the ER the patient was afebrile and no fever has been recorded subsequently patient did have a normal white count kidney function was normal liver enzymes mildly elevated did have a positive UA influenza RSV and COVID testing was negative patient did have a CT of the head which was negative for any bleed she also have a CT angiogram of the chest that was negative for PE progression of emphysema but no evidence of any consolidation patient was treated with Rocephin infectious disease was co nsulted last evening for further management of antibiotic therapy. At the time my evaluation this morning the patient is afebrile the patient is slightly more awake alert per family at the bedside patient has some elevated good historian however when asked leading question answer was mostly normal no vomiting or diarrhea has been reported Review of Systems Positive points has been mentioned in HPI complete review could not be obtained because of his underlying mental status Past Medical History Past Medical History: COPD, Dementia, Hypertension Additional Past Medical History / Comment(s): back and hip pain History of Any Multi-Drug Resistant Organisms: None Reported Past Surgical History: Breast Surgery Additional Past Surgical History / Comment(s): pt states hx excisional biopsy Past Anesthesia/Blood Transfusion Reactions: No Reported Reaction Past Psychological History: Depression Smoking Status: Current some day smoker Past Alcohol Use History: Rare Past Drug Use History: None Reported Medications and Allergies Home Medications Medication Instructions Recorded Confirmed Type Donepezil [Aricept] 10 mg PO HS 03/23/18 10/21/22 History Escitalopram [Lexapro] 20 mg PO DAILY 03/23/18 10/21/22 History Memantine [Namenda] 10 mg PO BID 03/23/18 10/21/22 History lisinopriL [Zestril] 10 mg PO DAILY 03/23/18 10/21/22 History Ascorbic Acid [Vitamin C] 1,000 mg PO DAILY 10/21/22 10/21/22 History Cholecalciferol [Vitamin D3 (25 25 mcg PO DAILY 10/21/22 10/21/22 History Mcg = 1000 Iu)] Megestrol [Megace] 40 mg PO DAILY 10/21/22 10/21/22 History Vitamin B Complex 1 cap PO DAILY 10/21/22 10/21/22 History Yupelri 175 Mcg 175 mcg INHALATION RT-DAILY 10/21/22 10/22/22 History Zinc Gluconate [Zinc] 50 mg PO DAILY 10/21/22 10/21/22 History Acetaminophen Tab [Tylenol] 650 mg PO Q6HR PRN tab 10/24/22 Rx Aspirin 81 mg PO DAILY tab 10/24/22 Rx Atorvastatin [Lipitor] 10 mg PO DAILY tab 10/24/22 Rx Budesonide-Formot 160-4.5 Mcg 2 puff INHALATION RT-BID each 10/24/22 Rx [Symbicort 160-4.5 Mcg Inhaler] Ciprofloxacin HCl [Cipro] 250 mg PO BID tab 10/24/22 Rx Folic Acid-Vit B Complex-Vit C 1 each PO DAILY cap 10/24/22 Rx [Nephrocaps] Ibuprofen [Motrin] 400 mg PO Q6HR PRN tab 10/24/22 Rx Pantoprazole [Protonix] 40 mg PO AC-BID tab 10/24/22 Rx Allergies Allergy/AdvReac Type Severity Reaction Status Date / Time No Known Allergies Allergy Verified 10/21/22 20:19 Physical Exam Vitals: Vital Signs Temp Pulse Pulse Resp BP BP Pulse Ox 10/24/22 10:24 93 10/24/22 10:19 97.6 F 93 16 108/72 10/24/22 07:13 97.4 F L 70 16 108/69 93 L 10/24/22 02:00 97.8 F 76 17 114/67 97 10/23/22 20:33 80 10/23/22 20:17 76 10/23/22 19:33 98.4 F 75 17 124/78 98 10/23/22 14:00 98.4 F 90 16 120/81 98 Intake and Output 03/16/23 03/17/23 03/17/23 22:59 06:59 14:59 Intake Total 100 Output Total 100 200 Balance -100 -200 100 Intake: Oral 100 Output: Urine 100 200 Other: # Voids 200 GENERAL DESCRIPTION: Elderly female up in the chair, no distress. No tachypnea or accessory muscle of respiration use. HEENT: Shows Pallor , no scleral icterus. Oral mucous membrane is dry. No pharyngeal erythema or thrush NECK: Trachea central, no thyromegaly. LUNGS: Unlabored breathing. Clear to auscultation anteriorly. No wheeze or crackle. HEART: S1, S2, regular rate and rhythm. No loud murmur ABDOMEN: Soft, no tenderness , guarding or rigidity, no organomegaly EXTREMITIES: No edema of feet. SKIN: No rash, no masses palpable. NEUROLOGICAL: The patient is awake, alert, oriented x2, mood and affect normal. Results CBC & Chem 7: 10/21/22 16:42 10/21/22 16:42 Labs: Microbiology - Last 24 Hours (Table) 10/21/22 22:18 Blood Culture - Preliminary Blood No Growth after 48 hours 10/21/22 22:25 Blood Culture - Preliminary Blood No Growth after 48 hours 10/21/22 21:45 Urine Culture - Preliminary Urine,Voided Gram Neg Bacilli Assessment and Plan (1) UTI (urinary tract infection) Status: Acute Code(s): N39.0 - URINARY TRACT INFECTION, SITE NOT SPECIFIED SNOMED Code(s): 78314319 Plan: 1patient was in the hospital with weakness which is likely multifactorial in this patient who did have a positive UA and possible component of UTI from enteric gram-negative pathogen likely Rocephin sensitive as the patient seem to have shown clinical improvement with it 2-patient to continue Rocephin 1 g daily while waiting for the culture to finalize, however will be able to finish therapy with oral antibiotics 3-gentle IV fluid Family at the bedside questions were answered We will follow on clinical condition and cultures to further adjust medication if needed Thank you for this consultation we will follow the patient along with you Time with Patient: Greater than 30
== END 2022-10-24 18:28 | disposition home or self-care (01) ==
LOC: EC 15:30 → 4SSUR 22:35
PROVIDERS: ADMIT Family Medicine; ATTEND Family Medicine
DX: N39.0 Urinary tract infection, site not specified (principal); G93.41 Metabolic encephalopathy; E86.0 Dehydration; R53.1 Weakness; E46 Unspecified protein-calorie malnutrition; Z99.81 Dependence on supplemental oxygen; Z79.899 Other long term (current) drug therapy; J44.9 Chronic obstructive pulmonary disease, unspecified; Z20.822 Contact with and (suspected) exposure to COVID-19; F03.90 Unspecified dementia, unspecified severity, without behavioral disturbance, psychotic disturbance, mood disturbance, and anxiety; I10 Essential (primary) hypertension; G47.36 Sleep related hypoventilation in conditions classified elsewhere; Z98.890 Other specified postprocedural states; F32.A Depression, unspecified; F17.200 Nicotine dependence, unspecified, uncomplicated; R29.6 Repeated falls; R74.01 Elevation of levels of liver transaminase levels; M47.812 Spondylosis without myelopathy or radiculopathy, cervical region; Z86.73 Personal history of transient ischemic attack (TIA), and cerebral infarction without residual deficits; J43.9 Emphysema, unspecified
CPT/HCPCS: 96365; 96366 ×2; 96375; 99285; 36415; 94640 ×5; 94760; 93005; 97116; 97530 ×2; 97162; 97535; 97166; 85379; 83880; 80053; 84443 ×2; 82607; 82140; 82550; 82746; 83605; 83735; 84484; 85025; 85610; 85730; 81001; 87040; 87086; 87077; 87186; 87636; 73130; 71046; 72125; 70486; 70450; 71275; G0378 ×4; J0696 ×4; S0179 ×3; Q9967